=== PATIENT | female | born 1945 | race Caucasian/White ===

== ENCOUNTER 2017-03-26 05:31 | Inpatient (IN) | payer MEDICARE, BC ==
[2017-03-18 15:38] LABS: BASOPHILS % (AUTO) 0.5 % (0-1); EOSINOPHILS # (AUTO) 0.1 X10'3 (0-0.9); LYMPHOCYTES # (AUTO) 1.5 X10'3 (1.1-4.8); LYMPHOCYTES % (AUTO) 25.9 % (21-51); MEAN CORPUSCULAR HEMOGLOBIN 31.1 PG (27.0-31.0); MEAN CORPUSCULAR HGB CONC 35.8 % (33.0-36.5); MEAN CORPUSCULAR VOLUME 86.8 FL (78-98); MEAN PLATELET VOLUME 7.8 FL (7.4-10.4); MONOCYTES # (AUTO) 0.3 X10'3 (0-0.9); MONOCYTES % (AUTO) 6.1 % (2-12); NEUTROPHILS # (AUTO) 3.7 X10'3 (1.8-7.7); NEUTROPHILS % (AUTO) 65.5 % (42-75); PRE OP HEMATOCRIT 34.5 % (35.0-45.0); PRE OP HEMOGLOBIN 12.4 g/dL (12.0-16.0); PRE OP PLATELET COUNT 210 X10'3 (140-440); RED BLOOD COUNT 3.98 X10'6 (4.20-5.60)
[2017-03-18 15:43] LABS: PRE OP PROTIME 10.2 SECONDS (9.0-12.0)
[2017-03-18 15:51] LABS: ALBUMIN/GLOBULIN RATIO 1.4 (1.1-1.5); ALKALINE PHOSPHATASE 98 IU/L (46-116); BLOOD UREA NITROGEN 11 MG/DL (7-18); BUN/CREATININE RATIO 15.7 (6.6-38.0); CALCIUM 9.2 MG/DL (8.5-10.1); CHLORIDE 104 MMOL/L (99-107); PRE OP ALT 26 U/L (30-65); PRE OP ANION GAP 9 (8-16); PRE OP AST 21 U/L (10-37); PRE OP BILIRUB, TOTAL 0.5 MG/DL (0.0-1.0); PRE OP GLUCOSE 98 MG/DL (70-104); PRE OP POTASSIUM 3.7 MMOL/L (3.4-5.1); PRE OP SODIUM 141 MMOL/L (135-145); TOTAL CARBON DIOXIDE 27.7 MMOL/L (24-32); TOTAL PROTEIN 6.9 G/DL (6.4-8.2); eGFR 83 ML/MIN
[2017-03-26] VITALS (15 sets, daily range): BP systolic 102–158; BP diastolic 48–85
[~2017-03-26] VITALS: Ht 165.1 cm; Wt 88.7 kg
[~2017-03-26 05:31] MED LIST: CHOL50004 PO; CYAN50003 PO; FURO-150 PO; LEVO150T8 PO; MULT-289 PO; OMEP20CA10 PO; PROG100C6 PO; VALS160T2 PO; cefazolin/dext.iso 2gm/50ml 50 ML IV ONE; famotidine 20mg tablet PO ONE; ringers solution, lacted 1,000 ML IV SCH; vancomycin inj 1,500 MG in normal saline 300ml IV soln IV ONE
[2017-03-26] MEDS ORDERED: LIDOcaine 1% (10mg/ml) 2ml vial ONE (05:46)
[2017-03-26] MEDS ORDERED: ceFAZolin 1000mg inj ONE (06:44)
[2017-03-26] MEDS ORDERED: BUPIVAcaine/dex-water/PF 7.5 mg/ml 2ml ampul ONE (07:15)
[2017-03-26] MEDS ORDERED: tranexamic acid inj. 1,000 MG in normal saline 100ml IV soln 90 ML IV ONE (07:20)
[2017-03-26] MEDS ORDERED: MIDAZolam 1mg/ml 10ml vial ONE (07:28)
[2017-03-26] MEDS ORDERED: MORPHINE SULFATE/PF 0.5 MG/ML 10ML AMPUL ONE (07:28)
[2017-03-26] MEDS ORDERED: fentaNYL/PF 50MCG/1 ML 2ML syringe ONE (07:28)
[2017-03-26] MEDS ORDERED: tetracaine 1% (10mg/ml) pres. free inj. ONE (07:31)
[2017-03-26] MEDS ORDERED: propofol inj 20 ML IV ONE ×2 (08:07)
[2017-03-26] MEDS ORDERED: ePHEDrine 50MG/ML INJ. ONE (08:26)
[2017-03-26] MEDS ORDERED: naloxone 2mg/2ml inj 2 MG in normal saline 500ml IV soln 500 ML IV PRN (08:52)
[2017-03-26] MEDS ORDERED: ringers solution, lacted 1,000 ML IV SCH (08:52)
[2017-03-26] MEDS ORDERED: morphine 2 MG/ML inj. syringe IV PRN ×2 (08:55)
[2017-03-26] MEDS ORDERED: meperidine/PF 25mg/ml syringe IV PRN ×3 (08:55)
[2017-03-26] MEDS ORDERED: diphenhydrAMINE 50 mg/ml inj IV PRN (08:55)
[2017-03-26] MEDS ORDERED: proCHLORperazine 10 MG/2 ml inj IV PRN (08:55)
[2017-03-26] MEDS ORDERED: ondansetron/PF 4mg/2ml inj IV PRN ×3 (08:55→10:30)
[2017-03-26] MEDS ORDERED: HYDROmorphone 1 mg/ml syringe IV PRN (10:30)
[2017-03-26] MEDS ORDERED: bisacodyl 10mg suppository rectal RC PRN (10:30)
[2017-03-26] MEDS ORDERED: magnesium hydroxide 30ml (MOM) UD suspension PO PRN (10:30)
[2017-03-26] MEDS ORDERED: diphenhydrAMINE 25mg capsule PO PRN (10:30)
[2017-03-26] MEDS ORDERED: acetaminophen 325mg tablet PO PRN (10:30)
[2017-03-26] MEDS ORDERED: FURO20TA4 PO (11:24)
[2017-03-26] MEDS: furosemide 20MG tablet PO SCH (13:22)
[2017-03-26] MEDS: potassium cl 20mEq in 1/2 NS 1,000 ML IV SCH ×2 (13:23→23:49)
[2017-03-26] MEDS ORDERED: TRANEXAMIC ACID IV ONE (13:30)
[2017-03-26] MEDS ORDERED: NORMAL SALINE IV ONE (13:30)
[2017-03-26] MEDS: HYDROcodone/acetaminophen 10/325mg tab PO PRN ×2 (15:27→21:05)
[2017-03-26] MEDS: cefazolin 1gm/NS 100mL 100 ML IV SCH (16:15)
[2017-03-26] MEDS: aspirin 81mg tab.chew PO SCH (17:00)
[2017-03-26] MEDS ORDERED: vancomycin/NS 1 GM ADD-VANTAGE 250 ML IV SCH (20:00)
[2017-03-26] MEDS: sennosides 8.6mg tablet PO SCH (20:05)
[2017-03-26] MEDS: progesterone, micronized 100mg capsule PO SCH (20:06)
[2017-03-27] MEDS ORDERED: morphine 4 MG/ML inj SYRINge IV PRN (00:15)
[2017-03-27] MEDS ORDERED: morphine 2 MG/ML inj. syringe IV PRN (00:15)
[2017-03-27] MEDS ORDERED: morphine 5 MG/ML injection IV PRN (00:20)
[2017-03-27] MEDS: morphine 5 MG/ML injection IV PRN ×2 (00:29→09:15)
[2017-03-27] MEDS: cefazolin 1gm/NS 100mL 100 ML IV SCH (00:30)
[2017-03-27] MEDS: diphenhydrAMINE 25mg capsule PO PRN ×2 (00:40→21:50)
[2017-03-27 02:19] VITALS: BP 106/50
[2017-03-27] MEDS: potassium cl 20mEq in 1/2 NS 1,000 ML IV SCH ×2 (02:43→14:47)
[2017-03-27] MEDS: HYDROcodone/acetaminophen 10/325mg tab PO PRN ×5 (02:45→18:56)
[2017-03-27 05:00] VITALS: BP 102/49
[2017-03-27 05:54] LABS: BASOPHILS % (AUTO) 0.3 % (0-1); EOSINOPHILS # (AUTO) 0.1 X10'3 (0-0.9); EOSINOPHILS % (AUTO) 1.6 % (0-6); HEMATOCRIT 25.3 % (35.0-45.0); HEMOGLOBIN 8.7 g/dl (12.0-16.0); LYMPHOCYTES # (AUTO) 0.9 X10'3 (1.1-4.8); MEAN CORPUSCULAR HEMOGLOBIN 30.9 PG (27.0-31.0); MEAN CORPUSCULAR HGB CONC 34.4 % (33.0-36.5); MEAN CORPUSCULAR VOLUME 89.7 FL (78-98); MEAN PLATELET VOLUME 8.6 FL (7.4-10.4); MONOCYTES # (AUTO) 0.6 X10'3 (0-0.9); MONOCYTES % (AUTO) 9.5 % (2-12); NEUTROPHILS # (AUTO) 4.2 X10'3 (1.8-7.7); NEUTROPHILS % (AUTO) 72.6 % (42-75); PLATELET COUNT 121 X10'3 (140-440); RED BLOOD COUNT 2.82 X10'6 (4.20-5.60); RED CELL DISTRIBUTION WIDTH 13.2 % (11.5-14.5); WHITE BLOOD COUNT 5.8 X10'3 (4.5-11.0)
[2017-03-27] MEDS: levoTHYROXINE 75mcg tablet PO SCH (07:48)
[2017-03-27] MEDS: pantoprazole 40mg Tablet.DR PO SCH (07:48)
[2017-03-27 07:49] LABS: ALANINE AMINOTRANSFERASE 17 U/L (12-78); ALBUMIN 2.3 G/DL (3.4-5.0); ALKALINE PHOSPHATASE 63 IU/L (46-116); ANION GAP 8 (8-16); ASPARTATE AMINO TRANSFERASE 21 U/L (10-37); BILIRUBIN,TOTAL 0.5 MG/DL (0.1-1.0); BLOOD UREA NITROGEN 9 MG/DL (7-18); CHLORIDE 103 MMOL/L (99-107); GLUCOSE 97 MG/DL (70-104); POTASSIUM 3.7 MMOL/L (3.5-5.1); SODIUM 137 MMOL/L (135-145); TOTAL PROTEIN 4.7 G/DL (6.4-8.2); eGFR > 90 ML/MIN
[2017-03-27] MEDS: aspirin 81mg tab.chew PO SCH ×2 (07:49→20:41)
[2017-03-27] MEDS: furosemide 20MG tablet PO SCH (07:49)
[2017-03-27 10:20] VITALS: BP 94/45
[2017-03-27] MEDS: ketorolac tromethamine 15mg/ml inj. IV SCH ×3 (13:12→20:39)
[2017-03-27 14:00] VITALS: BP 122/43
[2017-03-27 18:00] VITALS: BP 111/51
[2017-03-27] MEDS: progesterone, micronized 100mg capsule PO SCH (20:40)
[2017-03-27] MEDS: nystatin 15 GM powder TP SCH (20:40)
[2017-03-27] MEDS: sennosides 8.6mg tablet PO SCH (20:40)
[2017-03-27 22:00] VITALS: BP 122/62
[2017-03-28] MEDS: HYDROcodone/acetaminophen 10/325mg tab PO PRN ×3 (02:32→14:11)
[2017-03-28] MEDS: ketorolac tromethamine 15mg/ml inj. IV SCH ×2 (02:32→08:14)
[2017-03-28 06:00] VITALS: BP 125/54
[2017-03-28 06:07] LABS: BASOPHILS % (AUTO) 0.2 % (0-1); EOSINOPHILS # (AUTO) 0.1 X10'3 (0-0.9); EOSINOPHILS % (AUTO) 1.5 % (0-6); HEMATOCRIT 24.5 % (35.0-45.0); HEMOGLOBIN 8.5 g/dl (12.0-16.0); LYMPHOCYTES # (AUTO) 0.8 X10'3 (1.1-4.8); LYMPHOCYTES % (AUTO) 12.6 % (21-51); MEAN CORPUSCULAR HEMOGLOBIN 31.1 PG (27.0-31.0); MEAN CORPUSCULAR HGB CONC 34.8 % (33.0-36.5); MEAN CORPUSCULAR VOLUME 89.3 FL (78-98); MEAN PLATELET VOLUME 8.4 FL (7.4-10.4); MONOCYTES # (AUTO) 0.5 X10'3 (0-0.9); MONOCYTES % (AUTO) 7.5 % (2-12); NEUTROPHILS % (AUTO) 78.2 % (42-75); PLATELET COUNT 105 X10'3 (140-440); RED BLOOD COUNT 2.75 X10'6 (4.20-5.60); RED CELL DISTRIBUTION WIDTH 13.2 % (11.5-14.5); WHITE BLOOD COUNT 6.4 X10'3 (4.5-11.0)
[2017-03-28 06:27] LABS: ALANINE AMINOTRANSFERASE 20 U/L (12-78); ALBUMIN 2.2 G/DL (3.4-5.0); ALBUMIN/GLOBULIN RATIO 0.8 (1.1-1.5); ALKALINE PHOSPHATASE 75 IU/L (46-116); ANION GAP 10 (8-16); ASPARTATE AMINO TRANSFERASE 21 U/L (10-37); BILIRUBIN,TOTAL 0.5 MG/DL (0.1-1.0); BLOOD UREA NITROGEN 13 MG/DL (7-18); BUN/CREATININE RATIO 18.6 (6.6-38.0); CALCIUM 8.2 MG/DL (8.5-10.1); CHLORIDE 105 MMOL/L (99-107); GLUCOSE 94 MG/DL (70-104); POTASSIUM 3.6 MMOL/L (3.5-5.1); SODIUM 139 MMOL/L (135-145); TOTAL PROTEIN 4.9 G/DL (6.4-8.2); eGFR 83 ML/MIN
[2017-03-28] MEDS: furosemide 20MG tablet PO SCH (08:00)
[2017-03-28] MEDS: pantoprazole 40mg Tablet.DR PO SCH (08:13)
[2017-03-28] MEDS: aspirin 81mg tab.chew PO SCH ×2 (08:14→19:49)
[2017-03-28] MEDS: levoTHYROXINE 75mcg tablet PO SCH (08:15)
[2017-03-28] MEDS: nystatin 15 GM powder TP SCH ×3 (08:18→19:53)
[2017-03-28 10:00] VITALS: BP 123/56
[2017-03-28] MEDS ORDERED: mag hydrox/Alum hydrox/simeth 30ml oral suspension PO PRN (10:05)
[2017-03-28 18:00] VITALS: BP 114/60
[2017-03-28] MEDS: progesterone, micronized 100mg capsule PO SCH (19:50)
[2017-03-28] MEDS: sennosides 8.6mg tablet PO SCH (19:50)
[2017-03-28 22:00] VITALS: BP 107/49
[2017-03-29] MEDS: HYDROcodone/acetaminophen 10/325mg tab PO PRN ×3 (02:14→13:26)
[2017-03-29 05:39] LABS: BASOPHILS % (AUTO) 0.3 % (0-1); EOSINOPHILS # (AUTO) 0.1 X10'3 (0-0.9); EOSINOPHILS % (AUTO) 1.9 % (0-6); HEMATOCRIT 24.1 % (35.0-45.0); HEMOGLOBIN 8.3 g/dl (12.0-16.0); LYMPHOCYTES # (AUTO) 0.6 X10'3 (1.1-4.8); LYMPHOCYTES % (AUTO) 14.6 % (21-51); MEAN CORPUSCULAR HEMOGLOBIN 30.8 PG (27.0-31.0); MEAN CORPUSCULAR HGB CONC 34.6 % (33.0-36.5); MEAN CORPUSCULAR VOLUME 89.2 FL (78-98); MEAN PLATELET VOLUME 8.4 FL (7.4-10.4); MONOCYTES # (AUTO) 0.4 X10'3 (0-0.9); MONOCYTES % (AUTO) 8.1 % (2-12); NEUTROPHILS # (AUTO) 3.3 X10'3 (1.8-7.7); NEUTROPHILS % (AUTO) 75.1 % (42-75); PLATELET COUNT 121 X10'3 (140-440); RED CELL DISTRIBUTION WIDTH 13.1 % (11.5-14.5); WHITE BLOOD COUNT 4.4 X10'3 (4.5-11.0)
[2017-03-29 05:53] LABS: ALANINE AMINOTRANSFERASE 21 U/L (12-78); ALBUMIN/GLOBULIN RATIO 0.6 (1.1-1.5); ALKALINE PHOSPHATASE 158 IU/L (46-116); ANION GAP 6 (8-16); ASPARTATE AMINO TRANSFERASE 27 U/L (10-37); BILIRUBIN,TOTAL 0.4 MG/DL (0.1-1.0); BLOOD UREA NITROGEN 21 MG/DL (7-18); CALCIUM 8.2 MG/DL (8.5-10.1); CHLORIDE 106 MMOL/L (99-107); GLUCOSE 95 MG/DL (70-104); POTASSIUM 3.9 MMOL/L (3.5-5.1); SODIUM 139 MMOL/L (135-145); TOTAL CARBON DIOXIDE 27.2 MMOL/L (24-32); TOTAL PROTEIN 5.2 G/DL (6.4-8.2); eGFR > 90 ML/MIN
[2017-03-29 07:02] VITALS: BP 117/46
[2017-03-29] MEDS: aspirin 81mg tab.chew PO SCH (07:51)
[2017-03-29] MEDS: pantoprazole 40mg Tablet.DR PO SCH (07:51)
[2017-03-29] MEDS: levoTHYROXINE 75mcg tablet PO SCH (07:55)
[2017-03-29] MEDS: nystatin 15 GM powder TP SCH ×2 (08:00→13:01)
[2017-03-29] MEDS: furosemide 20MG tablet PO SCH (08:00)
[2017-03-29 10:00] VITALS: BP_SYST 102; BP_SYST 95; BP_DIAS 47; BP_DIAS 55
== END 2017-03-29 15:48 | disposition home or self-care (01) | DRG 470 ==
LOC: PAS IN 05:31 → EDSTATUS 07:30 → ORTHO 4S 11:17
PROVIDERS: ADMIT Orthopaedic Surgery; ATTEND Orthopaedic Surgery
PROC: 0SR90JZ Replacement of Right Hip Joint with Synthetic Substitute, Open Approach (ICD-10-PCS; principal; 2017-03-26 07:24)
DX: M16.11 Unilateral primary osteoarthritis, right hip (principal); Z96.642 Presence of left artificial hip joint; D62 Acute posthemorrhagic anemia; E03.9 Hypothyroidism, unspecified; I10 Essential (primary) hypertension; K21.9 Gastro-esophageal reflux disease without esophagitis; M81.0 Age-related osteoporosis without current pathological fracture; Z98.84 Bariatric surgery status; Z79.899 Other long term (current) drug therapy
CPT/HCPCS: 36415; 80053; 82948; 85025; 85610; 85730; 86870; 86885; 86900; 86901; 86902; 86905; 86922; 87070; 93005; 97110; 97116; 97161; 97530; A6223; A6253; A6258; A6449; A7000; C1758; C1776; J0690; J1885; J2250; J2270; J2274; J2405; J2704; J3010; J3370; J3490; J7030; J7120; Q0163

== ENCOUNTER 2021-01-16 12:51 | Emergency (ER) | payer MEDICARE ==
[~2021-01-16] VITALS: Ht 165.1 cm; Wt 86.4 kg
[~2021-01-16 12:51] MED LIST changes: -CHOL50004 PO; -CYAN50003 PO; -FURO-150 PO; +FURO20TA4 PO; -MULT-289 PO; -OMEP20CA10 PO; +OMEP20CA15 PO; +PROG100C11 PO; -PROG100C6 PO; -cefazolin/dext.iso 2gm/50ml 50 ML IV ONE; -famotidine 20mg tablet PO ONE; -ringers solution, lacted 1,000 ML IV SCH; -vancomycin inj 1,500 MG in normal saline 300ml IV soln IV ONE
[2021-01-16 15:07] VITALS: BP 210/108
[2021-01-16] MEDS ORDERED: LIDOcaine 1% W/epiNEPHrine 1:100,000 20ml vial SQ ONE (18:00)
[2021-01-16] MEDS ORDERED: TETanus/Pertussis (Acell)/Diphther VAC/PF (Tdap-Adult) 0.5ml syringe IMVAC ONE (18:10)
== END 2021-01-16 18:47 | disposition home or self-care (01) ==
LOC: ER 12:52
DX: S01.81XA Laceration without foreign body of other part of head, initial encounter (principal); S01.112A Laceration without foreign body of left eyelid and periocular area, initial encounter; S00.531A Contusion of lip, initial encounter; I10 Essential (primary) hypertension; Z79.899 Other long term (current) drug therapy; W01.0XXA Fall on same level from slipping, tripping and stumbling without subsequent striking against object, initial encounter; Y93.K1 Activity, walking an animal; Y92.89 Other specified places as the place of occurrence of the external cause; Y99.8 Other external cause status
CPT/HCPCS: 12011; 90471; 90715; 99283